=== PATIENT | male | born 1960 | race Caucasian/White ===

== ENCOUNTER 2016-05-30 06:16 | Day surgery (SDC) | payer OTHER ==
--- NOTE | ~2016-05-30 | EGD ---
EGD REPORT [facility] [address] [place] [address] NAME: ABRAN TALAMANTES : 56 STATUS : REG [facility] [place] PAT#: [id number] AGE: 55 ADM/REG DATE : 05/30/16 MR#: [id number] REPORT SERV DATE: 05/30/16 DICTATED BY: QUYEN ASHRAF DATE: 05/30/16 REPORT STATUS : Draft TRANSCRIBED BY: [facility] DATE: 05/30/16 Endoscopy Center Patient Name: Abran Talamantes Date of : 1960 Attending MD: QUYEN ASRHAF MD Procedure Date No Time: 05/30/2016 Procedure: Colonoscopy Indications: Screening in patient at increased risk: Colorectal cancer in sister before age 60, FH of Colon Cancer -distant relative, Last colonoscopy: April 2011 Referring MD: Rosalba SORENSON II, ANA CORNEA Medicines: Propofol per Anesthesia Complications: No immediate complications. Estimated blood loss: None. Procedure: Pre-Anesthesia Assessment: - After reviewing the risks and benefits, the patient was deemed in satisfactory condition to undergo the procedure. - Prior to the procedure, a History and Physical was performed, and patient medications and allergies were reviewed. The patient's tolerance of previous anesthesia was also reviewed. The risks and benefits of the procedure and the sedation options and risks were discussed with the patient. All questions were answered, and informed consent was obtained. Prior Anticoagulants: The patient has taken no previous anticoagulant or antiplatelet agents. ASA Grade Assessment: III - A patient with severe systemic disease. After reviewing the risks and benefits, the patient was deemed in satisfactory condition to undergo the procedure. After I obtained informed consent, the scope was passed under direct vision. Throughout the procedure, the patient's blood pressure, pulse, and oxygen saturations were monitored continuously. The CF [id number] was introduced through the anus and advanced to the cecum, identified by appendiceal orifice and ileocecal valve. The colonoscopy was somewhat difficult due to a tortuous colon. Successful completion of the procedure was aided by straightening and shortening the scope to obtain bowel loop reduction and applying abdominal pressure. The appendiceal orifice was photographed. The patient tolerated the procedure well. The quality of the bowel preparation was adequate. The bowel preparation used was polyethylene glycol (PEG). Scope withdrawal time was nearly 9 minutes. EGD REPORT [place] [id number] [facility] [place]. [address] NAME: ABRAN TALAMANTES : 56 STATUS : REG [facility] [place] PAT#: [id number] AGE: 55 ADM/REG DATE : 05/30/16 MR#: [id number] REPORT SERV DATE: 05/30/16 DICTATED BY: QUYEN ASHRAF DATE: 05/30/16 REPORT STATUS : Draft TRANSCRIBED BY: [facility] [employer] DATE: 05/30/16 Findings: The perianal and digital rectal examinations were normal. Pertinent negatives include normal sphincter tone. Non-bleeding internal hemorrhoids were found during retroflexion and were medium-sized and Grade I (internal hemorrhoids that do not prolapse). A few small-mouthed diverticula were found in the sigmoid colon and in the descending colon. Two sessile polyps were found at the hepatic flexure. The polyps were diminutive in size. These polyps were removed with a cold biopsy forceps. Resection and retrieval were complete. Estimated blood loss: none. A sessile polyp was found in the transverse colon. The polyp was diminutive in size. The polyp was removed with a cold biopsy forceps. Resection and retrieval were complete. Estimated blood loss: none. The exam was otherwise without abnormality. Impression: - Non-bleeding internal hemorrhoids. - Mild diverticulosis in the sigmoid colon and in the descending colon. - Two diminutive polyps at the hepatic flexure. Resected and retrieved. - One diminutive polyp in the transverse colon. Resected and retrieved. - The examination was otherwise normal. Recommendation: - Discharge patient to home (ambulatory). - High fiber diet indefinitely. - Continue present medications. - Await pathology results. - Repeat colonoscopy in 3 years for surveillance of multiple adenomas. - Patient has a contact number available for emergencies. The signs and symptoms of potential delayed complications were discussed with the patient. Return to normal activities tomorrow. Written discharge instructions were provided to the patient. Procedure Code(s): --- Professional --- 13986, Colonoscopy, flexible, proximal to splenic flexure; with biopsy, single or multiple Diagnosis Code(s): --- Professional --- K64.0, First degree hemorrhoids K57.30, Diverticulosis of large intestine without perforation or abscess without bleeding D12.3, Benign neoplasm of transverse colon EGD REPORT [facility] [address] [place]. [address] NAME: ABRAN TALAMANTES : 56 STATUS : REG [facility] [place] PAT#: [id number] AGE: 55 ADM/REG DATE : 05/30/16 MR#: [id number] REPORT SERV DATE: 05/30/16 DICTATED BY: QUYEN ASHRAF DATE: 05/30/16 REPORT STATUS : Draft TRANSCRIBED BY: [employer] DATE: 05/30/16 Z12.11, Encounter for screening for malignant neoplasm of colon Z80.0, Family history of malignant neoplasm of digestive organs CPT copyright 2013 [employer]. All rights reserved. The codes documented in this report are preliminary and upon psychological anthropologist review may be revised to meet current compliance requirements. QUYEN ASHRAF MD 05/30/2016 8:25 AM This report has been signed electronically. Number of Addenda: 0 Note Initiated On: 05/30/2016 7:53 AM Scope Withdrawal Time 0 hours 8 minutes 55 seconds [address] [place] [address]
[~2016-05-30 06:16] MED LIST: ASAB PO; ASABAYER PO; CELEXA20 PO; CLARIT10 PO; CODLIVER OIL OR; COQ10100 MG OR; CRESTOR10 PO; CRESTOR5 MG PO; GARLIC PO; GLUCOPHAGE1000 MG PO; GLUCPH PO; INVOKANA300 MG PO; LOP25 PO; MULTIPLE VIT PO; OMNICEF300 PO; PCET PO; PRIN5 PO; TESTOSTERONE INJ IM; TOPXL25 PO; ZANTAC 75 PO; ZESTRIL5 MG PO; [UNRECOGNIZED DRUG - OTHER] OR; [UNRECOGNIZED DRUG - OTHER] OR; [UNRECOGNIZED DRUG - OTHER] PO
== END 2016-05-30 23:59 | disposition home or self-care (01) ==
LOC: DMU 06:16
PROVIDERS: Internal Medicine Gastroenterology
PROC: 0DBL8ZZ Excision of Transverse Colon, Via Natural or Artificial Opening Endoscopic (ICD-10-PCS; principal; 2016-05-30 08:00)
DX: Z12.11 Encounter for screening for malignant neoplasm of colon (principal); D12.3 Benign neoplasm of transverse colon; K64.0 First degree hemorrhoids; K57.30 Diverticulosis of large intestine without perforation or abscess without bleeding; E11.9 Type 2 diabetes mellitus without complications; E78.00 Pure hypercholesterolemia, unspecified; G47.33 Obstructive sleep apnea (adult) (pediatric); Z80.0 Family history of malignant neoplasm of digestive organs; Z86.010 Personal history of colon polyps; Z85.118 Personal history of other malignant neoplasm of bronchus and lung; Z87.891 Personal history of nicotine dependence; Z87.01 Personal history of pneumonia (recurrent); Z79.82 Long term (current) use of aspirin; Z79.84 Long term (current) use of oral hypoglycemic drugs; Z79.899 Other long term (current) drug therapy; Z95.5 Presence of coronary angioplasty implant and graft; Z98.890 Other specified postprocedural states
CPT/HCPCS: 82962; 88305